=== PATIENT | female | born 2000 | race Caucasian/White ===

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

== ENCOUNTER 2022-02-21 16:40 | Emergency (ER) | payer OTHER ==
[2022-02-21 17:02] VITALS: BP 124/73; PULSE 92; TEMP 98.2; BMI 19.6
== END 2022-02-21 17:52 | disposition home or self-care (01) ==
LOC: FER 16:40
DX: T78.40XA Allergy, unspecified, initial encounter (principal)
CPT/HCPCS: 99281-25